=== PATIENT | male | born 1930 | race Caucasian/White ===

== ENCOUNTER → 2016-10-28 | Outpatient (REF) | payer MEDICARE | LOC: M LAB REF 16:28 | PROVIDERS: ATTEND Family Medicine | DX: M10.9 Gout, unspecified (principal) ==

== ENCOUNTER → 2017-03-20 | Outpatient (CLI) | payer MEDICARE ==
[~2017-03-20] MED LIST: ALLO100T PO; ALPR0.5T3 PO; ASPI81TA85 PO; CARV12.5 PO; ELIQ2.5T PO; FURO40TA2 PO; LIDOCAINE VISCOUS 2% SOLN 15ML UDC As Ordered ONE; LOSA25TA8 PO; MIDAZOLAM INJ 2 MG/2 ML VIAL (J2250) As Ordered ONE; NS 1,000 ML IV SCH; OMEP40CA2 PO; PRAV10TA4 PO; SULI150T PO; XANA0.5T PO; fentaNYL 100 MCG/2 ML INJECTION (J3010) As Ordered ONE
--- NOTE | 2017-03-20 08:17 | RO ---
DATE OF PROCEDURE: 03/20/2017 INDICATION: Mitral insufficiency. POSTPROCEDURE DIAGNOSIS: Moderate mitral insufficiency, ischemic cardiomyopathy. PROCEDURE: Transesophageal echocardiogram. SURGEON: Dr. Andrey Randle AEROLOGIST: None ANESTHESIA: conscious sedation Mr. Roberts is an 86-year-old man who has known ischemic cardiomyopathy and per transthoracic echocardiogram approximately moderately severe mitral insufficiency. Because of progressive dyspnea, I decided to pursue with transesophageal echocardiogram to assess more accurately the degree of MR, to make a decision whether he needs to have open heart surgery. The details of the procedure, its indication and possible complications were discussed previously on outpatient basis and he previously signed appropriate consent. I again went over the risks and benefits of the procedure the day of the test. He was eager to proceed. PROCEDURE NOTE: Transesophageal echocardiogram was performed in endoscopy suite. The patient was brought in, in fasting condition. His posterior pharynx was anesthetized using viscous lidocaine and Cetacaine spray. Only 2 mg of IV Versed were used for sedation. When appropriate level of sedation was accomplished, a probe was introduced into the esophagus and later the stomach without difficulty. After appropriate images were obtained, it was withdrawn. There were no obvious complications and the patient tolerated the procedure well. FINDINGS: The left ventricle is globally hypokinetic, especially in septum. I estimate ejection fraction (EF) around 35%. The right ventricle appears normal size. Both atria are severely enlarged. The left atrial appendage is large and free of thrombus. The atrial septum is intact based on 2-D imaging, color Doppler imaging and injection of agitated saline. The aortic valve is tricuspid , it is sclerotic. There is mild aortic stenosis based on 2-D imaging. We were not able to get proper alignment for Doppler evaluation, but based on limited Doppler, again, it confirms only mild stenosis. Trivial insufficiency of the valve is also noted. The mitral valve also exhibits prominent degenerative abnormalities with mitral annular calcifications and thickening of leaflets. There appears to be a small perforation in the base of the anterior mitral leaflet, but most of the mitral insufficiency is central, probably related to LV dysfunction. I estimate the MR approximately moderate. There is very little aliasing to use PISA technique. Even though there is swirling of the regurgitant flow the left atrium, there is no reversal in flow in either left or right-sided pulmonary veins. There is mild pulmonic insufficiency and mild tricuspid insufficiency. The calculated pulmonary artery pressure is in the 30s , corresponding to mild pulmonary hypertension. There is a prominent atherosclerosis of the thoracic aorta, but I did not see any dissection or ulcers as such. CONCLUSIONS: 1. Cardiomyopathy with estimated EF around 35%. 2. Approximately moderate mitral insufficiency with combination of ischemic mechanism and degenerative disease of the valve. 3. Mild aortic stenosis. 4. Severe biatrial enlargement. 5. Intact atrial septum. 6. 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 COMMENT: SBE prophylaxis is not recommended. I do not believe that the patient would benefit from open heart surgery with the attempt to correct mitral valve abnormality. In my opinion, the risks of the procedure outweigh its benefits. The patient will be released home after a brief observation. CC; Jurgen Ralph MD MTDD
[2017-03-20 08:30] VITALS: BP 109/52
== END | disposition home or self-care (01) ==
LOC: M OPP 06:40
PROVIDERS: ATTEND Internal Medicine Cardiovascular Disease
DX: I34.0 Nonrheumatic mitral (valve) insufficiency (principal); I11.0 Hypertensive heart disease with heart failure; I25.810 Atherosclerosis of coronary artery bypass graft(s) without angina pectoris; I25.5 Ischemic cardiomyopathy; I48.91 Unspecified atrial fibrillation; E78.5 Hyperlipidemia, unspecified; F32.9 Major depressive disorder, single episode, unspecified; M10.9 Gout, unspecified; D64.9 Anemia, unspecified; I50.9 Heart failure, unspecified; N18.9 Chronic kidney disease, unspecified; M19.90 Unspecified osteoarthritis, unspecified site; K22.70 Barrett's esophagus without dysplasia; Z80.1 Family history of malignant neoplasm of trachea, bronchus and lung; Z79.82 Long term (current) use of aspirin; Z79.01 Long term (current) use of anticoagulants; Z79.899 Other long term (current) drug therapy; Z95.1 Presence of aortocoronary bypass graft; Z87.891 Personal history of nicotine dependence
CPT/HCPCS: 93312; 93320; 93325; J2250; J3010

== ENCOUNTER → 2017-08-21 | Outpatient (REF) | payer MEDICARE ==
[~2017-08-21] MED LIST changes: -LIDOCAINE VISCOUS 2% SOLN 15ML UDC As Ordered ONE; -MIDAZOLAM INJ 2 MG/2 ML VIAL (J2250) As Ordered ONE; -NS 1,000 ML IV SCH; -fentaNYL 100 MCG/2 ML INJECTION (J3010) As Ordered ONE
[2017-08-21 19:05] LABS: URIC ACID 9.3 MG/DL (3.5-7.2)
[2017-08-21 19:11] LABS: RETIC HEMOGLOBIN EQUIVALENT 39.8 pg (24-36); RETICULOCYTE % 1.6 % (0.5-1.5)
[2017-08-21 19:16] LABS: FOLATE > 24.0 NG/ML; VITAMIN B12 LEVEL 549 PG/ML
== END ==
LOC: M LAB REF 18:24
PROVIDERS: ATTEND Family Medicine
DX: D64.9 Anemia, unspecified (principal); M10.9 Gout, unspecified

== ENCOUNTER → 2017-12-01 | Outpatient (REF) | payer MEDICARE ==
[2017-12-01 18:25] LABS: URIC ACID 9.6 MG/DL (3.5-7.2)
== END ==
LOC: M LAB REF 16:57
DX: M10.9 Gout, unspecified (principal); M54.5 Low back pain
CPT/HCPCS: 84550